=== PATIENT | male | born 1950 | race Caucasian/White ===

== ENCOUNTER 2016-08-24 07:17 | Day surgery (SDC) | payer OTHER ==
[2016-08-23 10:12] VITALS: BMI 23.3
[2016-08-24] MEDS ORDERED: PROPOFOL 20 ML ONE (08:52)
[2016-08-24] MEDS ORDERED: MIDAZOLAM HCL 2 MG/2 ML SINGLE DOSE VIAL ONE (08:52)
[2016-08-24] MEDS ORDERED: ceFAZolin SODIUM 1 GM VIAL IVPB ONE (08:55)
[2016-08-24] MEDS ORDERED: ceFAZolin SODIUM 1 GM VIAL ONE (09:00)
[2016-08-24] MEDS ORDERED: KETOROLAC TROMETHAMINE 30 MG/1 ML VIAL ONE (09:12)
[2016-08-24] MEDS ORDERED: IBUPROFEN 800 MG/8 ML IJ IVPB PRN (09:13)
[2016-08-24] MEDS ORDERED: ACETAMINOPHEN 1000 MG/100 ML VIAL (NON FORMULARY) IVPB ONE ×2 (09:15→10:00)
[2016-08-24] MEDS ORDERED: DEXTROSE 5%-0.45% SALINE 1,000 ML IV SCH (09:15)
[2016-08-24] MEDS ORDERED: ONDANSETRON 4 MG/2 ML VIAL IVPUSH PRN (09:27)
[2016-08-24] MEDS ORDERED: LACTATED RINGERS SOLUTION 1,000 ML IV SCH (09:30)
[2016-08-24 18:16] VITALS: BP 120/60; PULSE 58; TEMP 97.2
--- NOTE | 2016-08-31 09:30 | OP ---
DATE OF OPERATION: 08/24/2016 PREOPERATIVE DIAGNOSIS: Right renal calculus. POSTOPERATIVE DIAGNOSIS: Right renal calculus. PROCEDURE: Right extracorporeal shock wave lithotripsy. SURGEON: Byron Stanley MD ANESTHESIA: General. FINDINGS: A stone in the right kidney. PREOPERATIVE INDICATION: The patient is a 65-year-old male with bilateral large kidney stones. He is to have an ESWL on the right side, today. OPERATION: The patient was brought to the OR, placed on the table in the supine position, and given general anesthesia. After the stone was visualized on fluoroscopy, IV antibiotics were given and a timeout was performed. Next, 2500 shocks were applied to the stone as localized via fluoroscopy. The patient tolerated the procedure well. The patient was then woken up. BYRON STANLEY M.D. [id number]
== END 2016-08-24 14:00 | disposition home or self-care (01) ==
LOC: JASU-SURG 07:17
PROVIDERS: ATTEND Urology
PROC: 0TF3XZZ Fragmentation in Right Kidney Pelvis, External Approach (ICD-10-PCS; principal; 2016-08-24 08:45)
DX: N20.0 Calculus of kidney (principal)
CPT/HCPCS: 94760

== ENCOUNTER 2016-09-21 10:40 | Day surgery (SDC) | payer OTHER ==
[2016-09-17 17:27] VITALS: BMI 23.3
[2016-09-21] MEDS ORDERED: KETOROLAC TROMETHAMINE 30 MG/1 ML VIAL ONE (12:27)
[2016-09-21] MEDS ORDERED: PROPOFOL 20 ML ONE (12:27)
[2016-09-21] MEDS ORDERED: ACETAMINOPHEN 1000 MG/100 ML VIAL (NON FORMULARY) IVPB ONE (12:28)
[2016-09-21] MEDS ORDERED: IBUPROFEN 800 MG/8 ML IJ IVPB PRN (12:28)
[2016-09-21] MEDS ORDERED: MIDAZOLAM HCL 2 MG/2 ML SINGLE DOSE VIAL ONE (12:28)
--- NOTE | 2016-09-21 12:28 | HP ---
History & Physical Update - History History: No Change - Physical Physical: No Change - Assessment Assessment: No Change - Plan Plan: No Change
[2016-09-21] MEDS ORDERED: DEXTROSE 5%-0.45% SALINE 1,000 ML IV SCH (12:30)
[2016-09-21] MEDS ORDERED: ceFAZolin SODIUM 1 GM VIAL IVPB ONE ×2 (12:33→12:39)
[2016-09-21] MEDS ORDERED: ceFAZolin SODIUM 1 GM VIAL ONE (12:33)
[2016-09-21] MEDS ORDERED: oxyCODONE HCL 5 MG TABLET PO PRN (13:37)
[2016-09-21] MEDS ORDERED: ONDANSETRON 4 MG/2 ML VIAL IVPUSH PRN (13:37)
[2016-09-21] MEDS ORDERED: ACETAMINOPHEN INJECTION 100 ML IVPB ONE (13:40)
[2016-09-21] MEDS ORDERED: LACTATED RINGERS SOLUTION 1,000 ML IV SCH (13:45)
[2016-09-21 14:09] VITALS: TEMP 97.8
[2016-09-21] MEDS ORDERED: oxyCODONE HCL 5 MG TABLET ONE (15:09)
[2016-09-21 15:46] VITALS: BP 145/80; PULSE 52
--- NOTE | 2016-09-22 10:32 | OP ---
DATE OF OPERATION: 09/21/2016 SURGEON: Byron Stanley MD PREOPERATIVE DIAGNOSIS: Left renal calculus. POSTOPERATIVE DIAGNOSIS: Left renal calculus. PROCEDURE: Left extracorporeal shock wave lithotripsy. ANESTHESIA: General; Nadira Hickman MD. FINDINGS: A large stone in the lower pole of the left kidney. PREOPERATIVE INDICATION: The patient has a large stone in his left kidney. He comes for ESWL. OPERATION: The patient was brought to the OR, placed on the table in the supine position, given general anesthesia and IV antibiotics. The stone was localized on ultrasound and fluoroscopy. A timeout was performed. Next, 2500 shocks were applied to the stone. It appeared to break up during the procedure. He tolerated the procedure well. He was woken up. BYRON STANLEY M.D. [id number]
== END 2016-09-21 15:25 | disposition home or self-care (01) ==
LOC: JASU-SURG 10:40
PROVIDERS: ATTEND Urology
PROC: 0TF4XZZ Fragmentation in Left Kidney Pelvis, External Approach (ICD-10-PCS; principal; 2016-09-21 12:00)
DX: N20.0 Calculus of kidney (principal)
CPT/HCPCS: 94760

== ENCOUNTER 2018-01-11 12:19 | Emergency (ER) | payer OTHER ==
[2018-01-11 12:23] VITALS: BP 122/77; PULSE 57; TEMP 97.9; BMI 22.6
--- NOTE | 2018-01-11 12:59 | PDOC ---
History of Present Illness - General Chief Complaint: Laceration Stated Complaint: hand lac Time Seen by Provider: 01/11/18 12:37 - History of Present Illness Initial Comments: 01/11/18 14:37 Chief complaint: Laceration of right hand History of present illness: Patient cut his right hand, dorsum, over third metacarpal, while unloading the ob gyn, as a result of a broken bowl. The laceration was small but there was a lot of bleeding. It has since subsided. He is on aspirin and Plavix. Review of systems: Denies distal numbness tingling weakness or limited motion of the fingers. Denies any other injuries. Denies foreign body Past medical history: Significant for [place] 13 years ago without significant heart problems since then,, coronary artery disease, high blood pressure. Elevated cholesterol Social/family history reviewed and noncontributory Physical exam: Alert and oriented well-developed well-nourished no acute distress cheerful and cooperative Afebrile, vital signs normal Right hand: 5 mm transverse laceration over the mid third metacarpal, dorsum of the hand. There is no bleeding at present. Tendon function is intact to all 5 digits, including extension and flexion against resistance of the MCP, PIP, DIP. No distal sensory deficits. Capillary refill intact. No tenderness or swelling over the wound. No palpable foreign body Impression: Superficial laceration Plan: Explore and close Past History - Past Medical History Allergies/Adverse Reactions: Allergies Allergy/AdvReac Type Severity Reaction Status Date / Time No Known Drug Allergies Allergy Verified 01/11/18 12:20 hay fever Allergy Mild Itching Uncoded 09/17/16 17:20 Home Medications: Ambulatory Orders Aspirin [Aspir-Low] 81 mg PO DAILY 08/14/14 Amlodipine Besylate [Norvasc -] 5 mg PO DAILY 01/11/18 Anemia: No Asthma: No Cancer: No Cardiac Disorders: Yes (2004 [place]/ 3 stents) CVA: No COPD: No CHF: No Dementia: No Diabetes: No GI Disorders: No Disorders: No HTN: No Hypercholesterolemia: Yes Liver Disease: No Seizures: No Thyroid Disease: No - Surgical History Abdominal Surgery: No Appendectomy: No Cardiac Surgery: Yes (stents 2004) Cholecystectomy: No Lung Surgery: No Neurologic Surgery: No Orthopedic Surgery: No - Suicide/Smoking/Psychosocial Hx Smoking History: Never smoked Have you smoked in the past 12 months: No Hx Alcohol Use: No Drug/Substance Use Hx: No Substance Use Type: None Hx Substance Use Treatment: No *Physical Exam - Vital Signs Last Vital Signs Temp Pulse Resp BP Pulse Ox 97.9 F 57 L 19 122/77 100 01/11/18 12:20 01/11/18 12:20 01/11/18 12:20 01/11/18 12:20 01/11/18 12:20 Medical Decision Making - Medical Decision Making 01/11/18 14:41 Wound was scrubbed and irrigated with normal saline, explored. It was found to be superficial. No exposed tendons or blood vessels. Wound edges were approximated with skin adhesive. 2 x 2 and Carmella were applied. Wound care was discussed. To follow-up there is bleeding or sign of infection. *DC/Admit/Observation/Transfer Diagnosis at time of Disposition: Laceration of hand Qualifiers: Encounter type: initial encounter Foreign body presence: without foreign body Laterality: right Qualified Code(s): S61.411A - Laceration without foreign body of right hand, initial encounter - Discharge Dispostion Disposition: HOME Condition at time of disposition: Improved Decision to Admit order: No - Referrals Referrals: Pato Mcintosh MD [Primary Care Provider] - - Patient Instructions Printed Discharge Instructions: DI for Laceration Repair With Dermabond Additional Instructions: Rest and elevate 24 hours Avoid any topical creams, ointments, or lotions, which will disrupt the glue. Return if there is any bleeding or there is numbness tingling or limited motion of the fingers - Post Discharge Activity
== END 2018-01-11 13:06 | disposition home or self-care (01) ==
LOC: FER 12:19
PROC: 0HQFXZZ Repair Right Hand Skin, External Approach (ICD-10-PCS; principal; 2018-01-11)
DX: S61.212A Laceration without foreign body of right middle finger without damage to nail, initial encounter (principal); S61.411A Laceration without foreign body of right hand, initial encounter; W26.8XXA Contact with other sharp object(s), not elsewhere classified, initial encounter; Y93.89 Activity, other specified; Y92.410 Unspecified street and highway as the place of occurrence of the external cause; E78.00 Pure hypercholesterolemia, unspecified; I25.2 Old myocardial infarction; Z95.5 Presence of coronary angioplasty implant and graft
CPT/HCPCS: 99282-25

== ENCOUNTER 2021-10-11 17:20 | Emergency (ER) | payer OTHER ==
[2021-10-11 17:34] VITALS: BP 124/75; PULSE 60; TEMP 98.8; BMI 23.6
[2021-10-11] MEDS ORDERED: DIPHTH,PERTUSS(ACELL),TET 0.5 ML DISP.SYRIN IM ONE ×2 (18:27→18:28)
[2021-10-11] MEDS ORDERED: CEPHALEXIN MONOHYDRATE 500 MG CAPSULE (UD) PO ONE (18:37)
[2021-10-11] MEDS ORDERED: CEPHALEXIN MONOHYDRATE 500 MG CAPSULE (UD) ONE (18:37)
== END 2021-10-11 18:52 | disposition home or self-care (01) ==
LOC: FER 17:20
PROC: 3E0234Z Introduction of Serum, Toxoid and Vaccine into Muscle, Percutaneous Approach (ICD-10-PCS; principal; 2021-10-11)
DX: S80.11XA Contusion of right lower leg, initial encounter (principal); W20.8XXA Other cause of strike by thrown, projected or falling object, initial encounter
CPT/HCPCS: 73610-TC-RT-FY; 90471; 90715; 93971-TC; 99284-25

== ENCOUNTER → 2024-05-25 | Day surgery (SDC) | payer OTHER ==
[2024-05-24 09:08] VITALS: BMI 21.8
[~2024-05-25] MED LIST: ACETAMINOPHEN INJECTION 100 ML ONE
== END | disposition home or self-care (01) ==
LOC: JASU-SURG 05:28
PROVIDERS: ATTEND Urology
DX: Z53.8 Procedure and treatment not carried out for other reasons (principal)
CPT/HCPCS: 88302-TC

== ENCOUNTER 2024-05-29 06:28 | Day surgery (SDC) | payer OTHER ==
[2024-05-25 14:07] VITALS: BMI 21.8
[2024-05-29] MEDS ORDERED: MIDAZOLAM HCL 2 MG/2 ML SINGLE DOSE VIAL ONE (11:28)
[2024-05-29] MEDS ORDERED: LIDOCAINE HCL/PF 2% SDV 5ML VIAL ONE (11:28)
[2024-05-29] MEDS ORDERED: PROPOFOL 20 ML ONE (11:28)
[2024-05-29] MEDS ORDERED: LIDOCAINE HCL 1%, 10 MG/ML (20ML VIAL) ONE (11:54)
[2024-05-29] MEDS ORDERED: DEXTROSE 5%-0.45% SALINE 1,000 ML IV SCH (12:00)
[2024-05-29] MEDS: ceFAZolin 2 GRAM PREMIX BAG IVPB ONE (12:07)
[2024-05-29] MEDS ORDERED: DEXAMETHASONE SOD PHOSPHATE 4 MG/1 ML VIAL ONE (12:09)
[2024-05-29] MEDS ORDERED: ceFAZolin SODIUM 1 GM VIAL ONE (12:09)
[2024-05-29] MEDS: LIDOCAINE HCL 1%, 10 MG/ML (20ML VIAL) NR ONE ×2 (12:13)
[2024-05-29] MEDS ORDERED: KETOROLAC TROMETHAMINE 30 MG/1 ML VIAL ONE (12:13)
[2024-05-29] MEDS ORDERED: ONDANSETRON 4 MG/2 ML VIAL ONE (12:13)
[2024-05-29] MEDS ORDERED: GLYCOPYRROLATE 0.2 MG/1 ML VIAL ONE (12:20)
[2024-05-29] MEDS ORDERED: LACTATED RINGERS SOLUTION 1,000 ML IV SCH (12:30)
[2024-05-29] MEDS ORDERED: ONDANSETRON 4 MG/2 ML VIAL IVPUSH PRN (12:52)
[2024-05-29] MEDS ORDERED: oxyCODONE HCL 5 MG TABLET PO PRN ×2 (12:52)
[2024-05-29] MEDS ORDERED: PROMETHAZINE HCL 25 MG/1 ML VIAL IVPB PRN (12:52)
[2024-05-29] MEDS: ACETAMINOPHEN 1000 MG/100 ML BAG IVPB ONE (13:47)
[2024-05-29 14:35] VITALS: RESP 18
[2024-05-29 16:13] VITALS: BP 134/78; PULSE 68; TEMP 97.7
== END 2024-05-29 16:00 | disposition home or self-care (01) ==
LOC: JASU-SURG 06:28
PROVIDERS: ATTEND Urology
PROC: 0VBH0ZZ Excision of Bilateral Spermatic Cords, Open Approach (ICD-10-PCS; principal; 2024-05-29 12:00)
DX: N43.3 Hydrocele, unspecified (principal)
CPT/HCPCS: 94760; J0131